=== PATIENT | female | born 1940 | race Caucasian/White ===

== ENCOUNTER 2021-01-29 18:21 | Emergency (ER) | payer MEDICARE, BC ==
[~2021-01-29] VITALS: Ht 162.6 cm; Wt 120.0 kg
[2021-01-29 19:57] LABS: BASOPHILS % 0.8 % (0.0-2.0); EOSINOPHILS % 1.1 % (0.0-5.0); HEMOGLOBIN. 11.2 g/dL (12.0-16.0); LYMPHOCYTES % 17.9 % (20.0-50.0); MEAN CORPUSCULAR HEMOGLOBIN 30.2 pg (28.0-32.0); MEAN CORPUSCULAR VOLUME 91.5 fL (81.0-99.0); MEAN PLATELET VOLUME 7.2 fl (7.4-10.4); MONOCYTES % 9.8 % (2.0-8.0); NEUTROPHILS % 70.4 % (40.0-76.0); PLATELET 287 x1000/uL (130-400); RED BLOOD CELL COUNT 3.72 mill/uL (4.2-5.4); RED CELL DISTRIBUTION WIDTH 15.4 % (11.6-14.6)
[2021-01-29 19:59] LABS: CHLORIDE 92 mEq/L (98-107)
[2021-01-29 23:50] VITALS: BP 155/67
== END 2021-01-30 00:19 | disposition home or self-care (01) ==
LOC: ER 18:21
DX: S09.8XXA Other specified injuries of head, initial encounter (principal); W01.0XXA Fall on same level from slipping, tripping and stumbling without subsequent striking against object, initial encounter; Y93.89 Activity, other specified; Y92.89 Other specified places as the place of occurrence of the external cause; Y99.8 Other external cause status; E11.9 Type 2 diabetes mellitus without complications; I10 Essential (primary) hypertension
CPT/HCPCS: 36415; 80053; 85025; 93005; 99285

== ENCOUNTER 2022-05-22 01:17 | Inpatient (IN) | payer MEDICARE, BC ==
[~2022-05-22] VITALS: Ht 165.1 cm; Wt 117.5 kg
[2022-05-22 04:12] LABS: CHLORIDE 78 mEq/L (98-107)
[2022-05-22 04:48] LABS: HEMOGLOBIN. 11.8 g/dL (12.0-16.0); MEAN CORPUSCULAR HEMOGLOBIN 29.9 pg (28.0-32.0); MEAN CORPUSCULAR VOLUME 91.2 fL (81.0-99.0); MEAN PLATELET VOLUME 7.7 fl (7.4-10.4); PLATELET 259 x1000/uL (130-400); RED BLOOD CELL COUNT 3.95 mill/uL (4.2-5.4); RED CELL DISTRIBUTION WIDTH 14.7 % (11.6-14.6)
[2022-05-22] MEDS ORDERED: CLONIDINE 0.1MG TABLET PO PRN (05:00)
[2022-05-22] MEDS ORDERED: MAGNESIUM/ALUMINUM HYDROXIDE/SIMETHICONE 30ML UDC PO PRN (05:00)
[2022-05-22] MEDS ORDERED: HYDROCODONE/ACETAMINOPHEN 5/325MG TABLET PO PRN (05:00)
[2022-05-22] MEDS ORDERED: DEXTROSE 50% WATER 50ML SYRINGE IV PRN (05:00)
[2022-05-22] MEDS ORDERED: ONDANSETRON HCL 4MG/2ML INJ IV PRN (05:00)
[2022-05-22] MEDS ORDERED: ACETAMINOPHEN 325MG TABLET PO PRN ×2 (05:00)
[2022-05-22] MEDS ORDERED: GUAIFENESIN 200MG/10ML SUGAR FREE UDC PO PRN (05:00)
[2022-05-22] MEDS ORDERED: DOCUSATE SODIUM 100MG CAPSULE PO PRN (05:00)
[2022-05-22] MEDS ORDERED: HYDR25TA PO (05:09)
[2022-05-22] MEDS ORDERED: GABA-532 PO (05:09)
[2022-05-22] MEDS ORDERED: ATROV3 (05:09)
[2022-05-22] MEDS ORDERED: DICL100G31 TP (05:09)
[2022-05-22] MEDS ORDERED: PRAV80TA19 PO (05:09)
[2022-05-22] MEDS ORDERED: METF-416 PO (05:09)
[2022-05-22] MEDS ORDERED: LATA2.5D14 EACHEYE (05:09)
[2022-05-22] MEDS ORDERED: FURO20TA4 PO (05:09)
[2022-05-22] MEDS ORDERED: TIMO15DR12 EACHEYE (05:09)
[2022-05-22] MEDS ORDERED: FLUT16SP15 (05:09)
[2022-05-22] MEDS ORDERED: LOSA50TA41 PO (05:09)
[2022-05-22] MEDS ORDERED: VANCOMYCIN 1G PREMIX 200 ML IV NR ×2 (05:30→07:00)
[2022-05-22] MEDS ORDERED: NALOXONE HCL 0.4MG/ML VIAL IV PRN (05:30)
[2022-05-22 05:36] LABS: PLATELET ESTIMATE NORMAL
[2022-05-22] MEDS: SODIUM CHLORIDE 0.9% 1,000 ML IV SCH ×2 (05:39→15:26)
[2022-05-22] MEDS ORDERED: PIPERACILLIN/TAZOBACTAM 3.375 G in DEXTROSE 5% WATER 50 ML IV SCH (06:00)
[2022-05-22 06:23] LABS: CLARITY URINE CLOUDY (CLEAR); COLOR URINE YELLOW (YELLOW); KETONES URINE NEGATIVE (NEGATIVE); LEUKOCYTE ESTERASE URINE 3+ (NEGATIVE); NITRITE URINE NEGATIVE (NEGATIVE); OCCULT BLOOD URINE TRACE (NEGATIVE); PROTEIN URINE NEGATIVE (NEGATIVE); UROBILINOGEN URINE 0.2 E.U./dL (0.2-1.0)
[2022-05-22 06:28] LABS: TOTAL IRON BINDING CAPACITY 359 ug/dL (250-450)
[2022-05-22 06:36] LABS: T4 FREE 1.58 ng/dL (0.76-1.46)
[2022-05-22 06:40] LABS: CREATINE KINASE 74 IU/L (26-192)
[2022-05-22 06:43] LABS: *AMPHETAMINES SCREEN URINE NEGATIVE (NEGATIVE); *BARBITURATES SCREEN URINE NEGATIVE (NEGATIVE); *BENZODIAZEPINES SCREEN URINE NEGATIVE (NEGATIVE); *COCAINE SCREEN URINE NEGATIVE (NEGATIVE); CANNABINOID URINE SCREEN NEGATIVE (NEGATIVE); METHADONE URINE SCREEN NEGATIVE (NEGATIVE); OPIATES URINE SCREEN NEGATIVE (NEGATIVE); PHENCYCLIDINE URINE SCREEN NEGATIVE (NEGATIVE)
[2022-05-22] MEDS ORDERED: PIPERACILLIN/TAZ 3.375G PREMIX 50 ML IV SCH (08:00)
[2022-05-22 08:06] LABS: SODIUM URINE RANDOM 36 mEq/L
[2022-05-22 08:53] LABS: BG BASE EXCESS 7.5 mmol/L (-2.0-2.0); BG CARBOXYHEMOGLOBIN 0.6 % (0.5-1.5); BG DEOXYHEMOGLOBIN 1.3 % (0.0-5.0); BG HCO3 ACT 34.9 mmol/L (22.0-26.0); BG METHEMOGLOBIN 0.2 % (0.0-1.5); BG OXYGEN SATURATION 98.7 % (92.0-98.5); BG OXYHEMOGLOBIN 97.9 % (94.0-97.0); BG PCO2 63.7 mmHg (35.0-45.0); BG PH 7.356 (7.350-7.450); BG PO2 146.5 mmHg (75.0-100.0); BG SAMPLE SITE RIGHT RADIAL; BG TOTAL HEMOGLOBIN 11.7 g/dL (12.0-18.0); BG VENT MODE NASAL CANNULA
[2022-05-22] MEDS: BLOOD SUGAR DIAGNOSTIC STRIP TEST SCH ×4 (09:27→23:00)
[2022-05-22] MEDS: INSULIN LISPRO 100 UNITS/ML SUBCUT SCH ×4 (10:35→23:00)
[2022-05-22] MEDS: LOSARTAN POTASSIUM 25 MG TABLET PO SCH (10:36)
[2022-05-22] MEDS: FUROSEMIDE 40MG/4ML VIAL IV SCH (10:36)
[2022-05-22] MEDS: GABAPENTIN 300MG CAPSULE PO SCH (10:37)
[2022-05-22] MEDS: HYDROCHLOROTHIAZIDE 25MG TABLET PO SCH (11:20)
[2022-05-22] MEDS: TIMOLOL MALEATE 0.5% OPHTH DROPS 5ML EACHEYE SCH ×2 (11:20→18:22)
[2022-05-22] MEDS: DICLOFENAC SODIUM 1% GEL 50GM TOP SCH ×4 (11:20→21:00)
[2022-05-22] MEDS: PIPERACILLIN/TAZOBACTAM 3.375 G in DEXTROSE 5% WATER 50 ML IV SCH (15:26)
[2022-05-22 15:42] LABS: CREATINE KINASE 141 IU/L (26-192)
[2022-05-22 16:52] LABS: BG BASE EXCESS 7.5 mmol/L (-2.0-2.0); BG CARBOXYHEMOGLOBIN 0.1 % (0.5-1.5); BG DEOXYHEMOGLOBIN 0.4 % (0.0-5.0); BG FRACTION INSPIRED OXYGEN 100; BG HCO3 ACT 35.3 mmol/L (22.0-26.0); BG METHEMOGLOBIN 0.6 % (0.0-1.5); BG OXYGEN SATURATION 99.6 % (92.0-98.5); BG OXYHEMOGLOBIN 98.9 % (94.0-97.0); BG PCO2 67.3 mmHg (35.0-45.0); BG PH 7.338 (7.350-7.450); BG PO2 455.2 mmHg (75.0-100.0); BG SAMPLE SITE LEFT RADIAL; BG TOTAL HEMOGLOBIN 12.1 g/dL (12.0-18.0); BG VENT MODE MASK - BIPAP
[2022-05-22] MEDS: LATANOPROST 0.005% OPHTH DROPS 2.5ML EACHEYE SCH (17:00)
[2022-05-22 17:56] LABS: CHLORIDE 79 mEq/L (98-107)
[2022-05-22 20:08] LABS: BG BASE EXCESS 5.6 mmol/L (-2.0-2.0); BG CARBOXYHEMOGLOBIN 0.6 % (0.5-1.5); BG FRACTION INSPIRED OXYGEN 40; BG HCO3 ACT 32.7 mmol/L (22.0-26.0); BG METHEMOGLOBIN 0.1 % (0.0-1.5); BG OXYHEMOGLOBIN 95.3 % (94.0-97.0); BG PCO2 60.9 mmHg (35.0-45.0); BG PH 7.348 (7.350-7.450); BG PO2 82.6 mmHg (75.0-100.0); BG TOTAL HEMOGLOBIN 11.7 g/dL (12.0-18.0); BG VENT MODE HIGH FLOW
[2022-05-22] MEDS ORDERED: SODIUM CHLORIDE 0.9% 500ML IV ONE (21:00)
[2022-05-22] MEDS: ATORVASTATIN CALCIUM 20MG TABLET PO SCH (21:00)
[2022-05-22] MEDS: FAMOTIDINE 20MG TABLET PO SCH (21:00)
[2022-05-22] MEDS: PHENYLEPHRINE 50 MG in DEXTROSE 5% WATER 250 ML IV PRN (21:35)
[2022-05-22] MEDS: MIDODRINE HCL 5MG TABLET PO SCH (22:00)
[2022-05-23] MEDS: PIPERACILLIN/TAZOBACTAM 3.375 G in DEXTROSE 5% WATER 50 ML IV SCH ×2 (00:08→07:26)
[2022-05-23] MEDS: SODIUM CHLORIDE 0.9% 1,000 ML IV SCH ×3 (03:54→23:00)
[2022-05-23] MEDS: PHENYLEPHRINE 50 MG in DEXTROSE 5% WATER 250 ML IV PRN ×2 (04:32→17:08)
[2022-05-23 05:45] LABS: HEMATOCRIT. 33.4 % (36.0-48.0); HEMOGLOBIN. 10.9 g/dL (12.0-16.0); MEAN CORPUSCULAR HEMOGLOBIN 30.1 pg (28.0-32.0); MEAN CORPUSCULAR VOLUME 91.9 fL (81.0-99.0); MEAN PLATELET VOLUME 7.1 fl (7.4-10.4); PLATELET 251 x1000/uL (130-400); RED BLOOD CELL COUNT 3.64 mill/uL (4.2-5.4); RED CELL DISTRIBUTION WIDTH 14.9 % (11.6-14.6)
[2022-05-23 05:52] LABS: CHLORIDE 84 mEq/L (98-107)
[2022-05-23 06:01] LABS: HDL CHOLESTEROL 100 mg/dL (40-59); LDL CHOLESTEROL 20 mg/dL (5-100)
[2022-05-23] MEDS: BLOOD SUGAR DIAGNOSTIC STRIP TEST SCH ×4 (06:30→21:53)
[2022-05-23] MEDS: INSULIN LISPRO 100 UNITS/ML SUBCUT SCH ×3 (07:00→22:00)
[2022-05-23 07:18] LABS: PLATELET ESTIMATE NORMAL
[2022-05-23] MEDS: MIDODRINE HCL 5MG TABLET PO SCH (07:26)
[2022-05-23] MEDS ORDERED: POTASSIUM CHLORIDE 20MEQ TABLET SR PO NR (08:30)
[2022-05-23] MEDS ORDERED: PIPERACILLIN/TAZ 3.375G PREMIX 50 ML IV SCH (08:45)
[2022-05-23] MEDS ORDERED: AZITHROMYCIN 500MG/250ML 250 ML IV NR (08:45)
[2022-05-23 09:50] LABS: BG CARBOXYHEMOGLOBIN 0.7 % (0.5-1.5); BG DEOXYHEMOGLOBIN 4.3 % (0.0-5.0); BG FRACTION INSPIRED OXYGEN 40; BG HCO3 ACT 34.2 mmol/L (22.0-26.0); BG METHEMOGLOBIN 0.1 % (0.0-1.5); BG OXYGEN SATURATION 95.7 % (92.0-98.5); BG OXYHEMOGLOBIN 94.9 % (94.0-97.0); BG PCO2 78.2 mmHg (35.0-45.0); BG PH 7.259 (7.350-7.450); BG PO2 81.9 mmHg (75.0-100.0); BG SAMPLE SITE LEFT RADIAL; BG TOTAL HEMOGLOBIN 11.7 g/dL (12.0-18.0); BG VENT MODE HIGH FLOW
[2022-05-23] MEDS: FUROSEMIDE 40MG/4ML VIAL IV SCH (09:55)
[2022-05-23] MEDS: HYDROCHLOROTHIAZIDE 25MG TABLET PO SCH (09:55)
[2022-05-23] MEDS: GABAPENTIN 300MG CAPSULE PO SCH (09:55)
[2022-05-23] MEDS: TIMOLOL MALEATE 0.5% OPHTH DROPS 5ML EACHEYE SCH ×2 (09:55→17:35)
[2022-05-23] MEDS: DICLOFENAC SODIUM 1% GEL 50GM TOP SCH ×4 (09:55→21:30)
[2022-05-23] MEDS: LOSARTAN POTASSIUM 25 MG TABLET PO SCH (09:55)
[2022-05-23] MEDS ORDERED: VANCOMYCIN 1G PREMIX 200 ML IV SCH (12:00)
[2022-05-23] MEDS ORDERED: PREDNISONE 20MG TABLET PO SCH (12:45)
[2022-05-23] MEDS ORDERED: VECURONIUM BROMIDE 10 MG/VIAL IV ONE (12:58)
[2022-05-23] MEDS ORDERED: ETOMIDATE 2MG/ML 10ML VIAL IV ONE (12:58)
[2022-05-23] MEDS ORDERED: SODIUM CHLORIDE 0.9% 10ML VIAL ONE (12:58)
[2022-05-23] MEDS: PIPERACILLIN/TAZ 3.375G PREMIX 50 ML IV SCH ×2 (14:00→23:00)
[2022-05-23] MEDS ORDERED: MIDODRINE HCL 5MG TABLET PO SCH ×2 (14:30→22:00)
[2022-05-23] MEDS: IPRATROPIUM/ALBUTEROL 0.5-3(2.5)MG/3ML NEB NEB PRN (14:40)
[2022-05-23 15:49] LABS: BG BASE EXCESS 4.2 mmol/L (-2.0-2.0); BG CARBOXYHEMOGLOBIN 0.7 % (0.5-1.5); BG DEOXYHEMOGLOBIN 1.7 % (0.0-5.0); BG FRACTION INSPIRED OXYGEN 35; BG HCO3 ACT 32.5 mmol/L (22.0-26.0); BG METHEMOGLOBIN 0.4 % (0.0-1.5); BG OXYGEN SATURATION 98.3 % (92.0-98.5); BG OXYHEMOGLOBIN 97.2 % (94.0-97.0); BG PCO2 70.2 mmHg (35.0-45.0); BG PH 7.284 (7.350-7.450); BG PO2 111.5 mmHg (75.0-100.0); BG SAMPLE SITE LEFT RADIAL; BG TOTAL HEMOGLOBIN 11.4 g/dL (12.0-18.0); BG VENT MODE MASK - BIPAP
[2022-05-23] MEDS ORDERED: FENTANYL 2500MCG/250ML PMX 250 ML IV PRN (16:30)
[2022-05-23] MEDS: LATANOPROST 0.005% OPHTH DROPS 2.5ML EACHEYE SCH (17:35)
[2022-05-23] MEDS: MIDAZOLAM HCL 100 MG in SODIUM CHLORIDE 0.9% 80 ML IV PRN (18:24)
[2022-05-23 18:45] LABS: BG BASE EXCESS 8.2 mmol/L (-2.0-2.0); BG CARBOXYHEMOGLOBIN 0.9 % (0.5-1.5); BG DEOXYHEMOGLOBIN 1.2 % (0.0-5.0); BG FRACTION INSPIRED OXYGEN 40; BG HCO3 ACT 33.9 mmol/L (22.0-26.0); BG METHEMOGLOBIN 0.2 % (0.0-1.5); BG OXYGEN SATURATION 98.8 % (92.0-98.5); BG OXYHEMOGLOBIN 97.7 % (94.0-97.0); BG PCO2 51.6 mmHg (35.0-45.0); BG PH 7.435 (7.350-7.450); BG PO2 130.2 mmHg (75.0-100.0); BG SAMPLE SITE LEFT RADIAL; BG TOTAL HEMOGLOBIN 12.2 g/dL (12.0-18.0); BG VENT MODE VENT - AC
[2022-05-23] MEDS: FAMOTIDINE 20MG TABLET PO SCH (21:30)
[2022-05-23] MEDS: ATORVASTATIN CALCIUM 20MG TABLET PO SCH (21:30)
[2022-05-23] MEDS ORDERED: LABETALOL 5MG/ML SYR 20 MG/4 ML SYRINGE IV NR (22:45)
[2022-05-23] MEDS: METHYLPREDNISOLONE SOD SUCC 125 MG/2 ML VIAL IV SCH (23:06)
[2022-05-24] VITALS (47 sets, daily range): BP systolic 121–169; BP diastolic 50–78
[2022-05-24] MEDS ORDERED: PIPERACILLIN/TAZOBACTAM 3.375 G in DEXTROSE 5% WATER 50 ML IV SCH (06:00)
[2022-05-24] MEDS: METHYLPREDNISOLONE SOD SUCC 125 MG/2 ML VIAL IV SCH ×3 (06:00→22:11)
[2022-05-24] MEDS: SODIUM CHLORIDE 0.9% 1,000 ML IV SCH (07:00)
[2022-05-24] MEDS ORDERED: AZITHROMYCIN 500 MG in DEXT 5% WATER 250 ML IV SCH (08:00)
[2022-05-24] MEDS: GABAPENTIN 300MG CAPSULE PO SCH (09:00)
[2022-05-24] MEDS: TIMOLOL MALEATE 0.5% OPHTH DROPS 5ML EACHEYE SCH ×2 (09:00→22:20)
[2022-05-24] MEDS: DICLOFENAC SODIUM 1% GEL 50GM TOP SCH ×4 (09:00→21:18)
[2022-05-24 10:17] LABS: BG BASE EXCESS 8.5 mmol/L (-2.0-2.0); BG CARBOXYHEMOGLOBIN 0.3 % (0.5-1.5); BG DEOXYHEMOGLOBIN 1.4 % (0.0-5.0); BG FRACTION INSPIRED OXYGEN 35; BG HCO3 ACT 30.6 mmol/L (22.0-26.0); BG METHEMOGLOBIN 0.3 % (0.0-1.5); BG PCO2 34.2 mmHg (35.0-45.0); BG PO2 121.5 mmHg (75.0-100.0); BG SAMPLE SITE LEFT RADIAL; BG TOTAL HEMOGLOBIN 11.5 g/dL (12.0-18.0); BG VENT MODE VENT - AC
[2022-05-24] MEDS: BLOOD SUGAR DIAGNOSTIC STRIP TEST SCH ×4 (11:00→21:17)
[2022-05-24] MEDS: INSULIN LISPRO 100 UNITS/ML SUBCUT SCH ×4 (11:01→21:22)
[2022-05-24] MEDS ORDERED: VANCOMYCIN 1G PREMIX 200 ML IV SCH (13:00)
[2022-05-24] MEDS: AZITHROMYCIN 500 MG in DEXT 5% WATER 250 ML IV SCH (13:37)
[2022-05-24] MEDS: MIDAZOLAM HCL 100 MG in SODIUM CHLORIDE 0.9% 80 ML IV PRN (13:40)
[2022-05-24] MEDS: PIPERACILLIN/TAZOBACTAM 3.375 G in DEXTROSE 5% WATER 50 ML IV SCH ×2 (14:00→22:11)
[2022-05-24 15:53] LABS: HEMATOCRIT. 31.5 % (36.0-48.0); HEMOGLOBIN. 10.4 g/dL (12.0-16.0); MEAN CORPUSCULAR HEMOGLOBIN 29.8 pg (28.0-32.0); MEAN CORPUSCULAR VOLUME 90.6 fL (81.0-99.0); MEAN PLATELET VOLUME 7.6 fl (7.4-10.4); PLATELET 242 x1000/uL (130-400); RED BLOOD CELL COUNT 3.48 mill/uL (4.2-5.4); RED CELL DISTRIBUTION WIDTH 14.7 % (11.6-14.6)
[2022-05-24 16:08] LABS: CHLORIDE 87 mEq/L (98-107)
[2022-05-24 16:25] LABS: T4 FREE 1.68 ng/dL (0.76-1.46)
[2022-05-24 16:28] LABS: CREATINE KINASE 1001 IU/L (26-192); CREATINE KINASE MB FRACTION 4.6 ng/mL (0.5-3.6); PHOSPHORUS 1.3 mg/dL (2.5-4.9)
[2022-05-24] MEDS ORDERED: MAGNESIUM 2 G PREMIX 50 ML IV NR (17:30)
[2022-05-24] MEDS ORDERED: KCL 20MEQ/100ML PREMIX 100 ML IV NR (17:30)
[2022-05-24] MEDS: PANTOPRAZOLE SODIUM 40 MG/VIAL IV SCH (18:41)
[2022-05-24] MEDS: KCL 20MEQ/100ML PREMIX 100 ML IV SCH ×2 (18:41→21:13)
[2022-05-24] MEDS ORDERED: POTASSIUM PHOS,M-BASIC-D-BASIC 30 MMOL in DEXT 5% WATER 500 ML IV ONE (19:00)
[2022-05-24 19:14] LABS: PLATELET ESTIMATE NORMAL
[2022-05-24] MEDS: ATORVASTATIN CALCIUM 20MG TABLET PO SCH (21:00)
[2022-05-24] MEDS: ENOXAPARIN 30MG/0.3ML SYR SUBCUT SCH (22:06)
[2022-05-24] MEDS: LATANOPROST 0.005% OPHTH DROPS 2.5ML EACHEYE SCH (22:20)
[2022-05-25] VITALS (94 sets, daily range): BP systolic 113–179; BP diastolic 48–169
[2022-05-25 00:22] LABS: CREATINE KINASE MB FRACTION 3.7 ng/mL (0.5-3.6)
[2022-05-25] MEDS: PIPERACILLIN/TAZOBACTAM 3.375 G in DEXTROSE 5% WATER 50 ML IV SCH ×3 (05:51→22:15)
[2022-05-25] MEDS: METHYLPREDNISOLONE SOD SUCC 125 MG/2 ML VIAL IV SCH ×3 (05:51→22:14)
[2022-05-25] MEDS: MIDAZOLAM HCL 100 MG in SODIUM CHLORIDE 0.9% 80 ML IV PRN (05:57)
[2022-05-25 06:39] LABS: HEMATOCRIT. 34.9 % (36.0-48.0); HEMOGLOBIN. 11.7 g/dL (12.0-16.0); MEAN CORPUSCULAR HEMOGLOBIN 30.3 pg (28.0-32.0); MEAN CORPUSCULAR VOLUME 89.9 fL (81.0-99.0); MEAN PLATELET VOLUME 7.6 fl (7.4-10.4); PLATELET 246 x1000/uL (130-400); RED BLOOD CELL COUNT 3.87 mill/uL (4.2-5.4); RED CELL DISTRIBUTION WIDTH 14.8 % (11.6-14.6)
[2022-05-25 06:44] LABS: CHLORIDE 91 mEq/L (98-107)
[2022-05-25 06:50] LABS: PHOSPHORUS 2.3 mg/dL (2.5-4.9)
[2022-05-25 06:53] LABS: CREATINE KINASE MB FRACTION 2.6 ng/mL (0.5-3.6)
[2022-05-25] MEDS: BLOOD SUGAR DIAGNOSTIC STRIP TEST SCH ×4 (08:29→21:00)
[2022-05-25] MEDS: ENOXAPARIN 30MG/0.3ML SYR SUBCUT SCH ×2 (08:45→22:18)
[2022-05-25] MEDS: PANTOPRAZOLE SODIUM 40 MG/VIAL IV SCH (08:45)
[2022-05-25] MEDS: POTASSIUM-SODIUM PHOSPHATE POWDER PACKET PO SCH ×2 (08:46→18:03)
[2022-05-25] MEDS: KCL 20MEQ/100ML PREMIX 100 ML IV SCH ×2 (08:46→11:33)
[2022-05-25] MEDS: DICLOFENAC SODIUM 1% GEL 50GM TOP SCH ×4 (08:46→22:13)
[2022-05-25] MEDS: AZITHROMYCIN 500 MG in DEXT 5% WATER 250 ML IV SCH (08:46)
[2022-05-25] MEDS: GABAPENTIN 300MG CAPSULE PO SCH (08:46)
[2022-05-25 08:47] LABS: PLATELET ESTIMATE NORMAL
[2022-05-25] MEDS: TIMOLOL MALEATE 0.5% OPHTH DROPS 5ML EACHEYE SCH ×2 (08:49→18:06)
[2022-05-25] MEDS: INSULIN LISPRO 100 UNITS/ML SUBCUT SCH ×4 (08:49→21:00)
[2022-05-25 09:03] LABS: BG BASE EXCESS 8.7 mmol/L (-2.0-2.0); BG CARBOXYHEMOGLOBIN 0.4 % (0.5-1.5); BG DEOXYHEMOGLOBIN 0.7 % (0.0-5.0); BG FRACTION INSPIRED OXYGEN 40; BG HCO3 ACT 32.2 mmol/L (22.0-26.0); BG METHEMOGLOBIN 0.4 % (0.0-1.5); BG OXYGEN SATURATION 99.3 % (92.0-98.5); BG OXYHEMOGLOBIN 98.5 % (94.0-97.0); BG PH 7.523 (7.350-7.450); BG PO2 178.7 mmHg (75.0-100.0); BG SAMPLE SITE LEFT RADIAL; BG TOTAL HEMOGLOBIN 11.7 g/dL (12.0-18.0); BG TOTAL RESPIRATORY RATE 16 b/min; BG VENT MODE VENT - AC
[2022-05-25] MEDS ORDERED: ACETAZOLAMIDE SODIUM 500MG/VIAL IV SCH (11:00)
[2022-05-25] MEDS: VANCOMYCIN 1G PREMIX 200 ML IV SCH (11:32)
[2022-05-25] MEDS: SODIUM CHLORIDE 0.9% 1,000 ML IV SCH (13:26)
[2022-05-25] MEDS ORDERED: LORAZEPAM 2MG/ML CPJ IV PRN (13:45)
[2022-05-25] MEDS: LATANOPROST 0.005% OPHTH DROPS 2.5ML EACHEYE SCH (18:06)
[2022-05-25] MEDS: ATORVASTATIN CALCIUM 20MG TABLET PO SCH (22:12)
[2022-05-26] VITALS (82 sets, daily range): BP systolic 112–176; BP diastolic 55–98
[2022-05-26] MEDS: VANCOMYCIN 1G PREMIX 200 ML IV SCH (05:34)
[2022-05-26] MEDS: SODIUM CHLORIDE 0.9% 1,000 ML IV SCH ×2 (05:34→16:27)
[2022-05-26] MEDS: METHYLPREDNISOLONE SOD SUCC 125 MG/2 ML VIAL IV SCH ×3 (05:46→21:27)
[2022-05-26] MEDS: PIPERACILLIN/TAZOBACTAM 3.375 G in DEXTROSE 5% WATER 50 ML IV SCH ×3 (05:46→21:32)
[2022-05-26 06:55] LABS: HEMATOCRIT. 35.2 % (36.0-48.0); HEMOGLOBIN. 11.8 g/dL (12.0-16.0); MEAN CORPUSCULAR HEMOGLOBIN 30.4 pg (28.0-32.0); MEAN CORPUSCULAR VOLUME 90.3 fL (81.0-99.0); MEAN PLATELET VOLUME 7.5 fl (7.4-10.4); PLATELET 256 x1000/uL (130-400)
[2022-05-26 07:02] LABS: CHLORIDE 99 mEq/L (98-107)
[2022-05-26 07:06] LABS: PHOSPHORUS 2.1 mg/dL (2.5-4.9)
[2022-05-26] MEDS: BLOOD SUGAR DIAGNOSTIC STRIP TEST SCH ×4 (07:52→21:00)
[2022-05-26] MEDS: TIMOLOL MALEATE 0.5% OPHTH DROPS 5ML EACHEYE SCH ×2 (08:24→18:26)
[2022-05-26] MEDS: GABAPENTIN 300MG CAPSULE PO SCH (08:24)
[2022-05-26] MEDS: DICLOFENAC SODIUM 1% GEL 50GM TOP SCH ×4 (08:24→21:31)
[2022-05-26] MEDS: PANTOPRAZOLE SODIUM 40 MG/VIAL IV SCH (08:24)
[2022-05-26] MEDS: KCL 20MEQ/100ML PREMIX 100 ML IV SCH ×2 (08:24→12:21)
[2022-05-26] MEDS: ASPIRIN 81MG TABLET PO SCH (08:24)
[2022-05-26] MEDS: AZITHROMYCIN 500 MG in DEXT 5% WATER 250 ML IV SCH (08:25)
[2022-05-26] MEDS: ENOXAPARIN 30MG/0.3ML SYR SUBCUT SCH ×2 (08:25→21:30)
[2022-05-26] MEDS: INSULIN LISPRO 100 UNITS/ML SUBCUT SCH ×4 (08:29→22:23)
[2022-05-26] MEDS: IPRATROPIUM/ALBUTEROL 0.5-3(2.5)MG/3ML NEB NEB PRN ×2 (08:41→14:17)
[2022-05-26 09:03] LABS: BG BASE EXCESS 2.4 mmol/L (-2.0-2.0); BG CARBOXYHEMOGLOBIN 0.2 % (0.5-1.5); BG DEOXYHEMOGLOBIN 1.1 % (0.0-5.0); BG FRACTION INSPIRED OXYGEN 30; BG HCO3 ACT 26.9 mmol/L (22.0-26.0); BG METHEMOGLOBIN 0.3 % (0.0-1.5); BG OXYGEN SATURATION 98.9 % (92.0-98.5); BG OXYHEMOGLOBIN 98.4 % (94.0-97.0); BG PCO2 41.3 mmHg (35.0-45.0); BG PH 7.432 (7.350-7.450); BG SAMPLE SITE LEFT RADIAL; BG VENT MODE VENT - AC
[2022-05-26 10:45] LABS: PLATELET ESTIMATE NORMAL
[2022-05-26 12:47] LABS: BG BASE EXCESS -1.4 mmol/L (-2.0-2.0); BG CARBOXYHEMOGLOBIN 0.5 % (0.5-1.5); BG DEOXYHEMOGLOBIN 1.2 % (0.0-5.0); BG FRACTION INSPIRED OXYGEN 40; BG HCO3 ACT 24.8 mmol/L (22.0-26.0); BG METHEMOGLOBIN 0.1 % (0.0-1.5); BG OXYGEN SATURATION 98.8 % (92.0-98.5); BG OXYHEMOGLOBIN 98.2 % (94.0-97.0); BG PCO2 47.8 mmHg (35.0-45.0); BG PH 7.333 (7.350-7.450); BG SAMPLE SITE RIGHT RADIAL; BG TOTAL HEMOGLOBIN 11.9 g/dL (12.0-18.0); BG VENT MODE VENT - CPAP
[2022-05-26] MEDS ORDERED: DOCUSATE SODIUM SUGAR FREE 100MG/10ML UDC PO PRN (13:06)
[2022-05-26] MEDS ORDERED: MAGNESIUM 1 G PREMIX 100 ML IV NR (16:30)
[2022-05-26] MEDS: LATANOPROST 0.005% OPHTH DROPS 2.5ML EACHEYE SCH (18:26)
[2022-05-26] MEDS: ATORVASTATIN CALCIUM 20MG TABLET PO SCH (21:27)
[2022-05-27] VITALS (55 sets, daily range): BP systolic 130–190; BP diastolic 28–99
[2022-05-27] MEDS: SODIUM CHLORIDE 0.9% 1,000 ML IV SCH ×3 (00:50→23:43)
[2022-05-27 05:38] LABS: BASOPHILS % 0.2 % (0.0-2.0); EOSINOPHILS % 0.2 % (0.0-5.0); HEMATOCRIT. 33.9 % (36.0-48.0); HEMOGLOBIN. 11.3 g/dL (12.0-16.0); LYMPHOCYTES % 7.1 % (20.0-50.0); MEAN CORPUSCULAR HEMOGLOBIN 30.3 pg (28.0-32.0); MEAN CORPUSCULAR VOLUME 90.5 fL (81.0-99.0); MEAN PLATELET VOLUME 7.4 fl (7.4-10.4); MONOCYTES % 7.3 % (2.0-8.0); NEUTROPHILS % 85.2 % (40.0-76.0); PLATELET 273 x1000/uL (130-400); RED BLOOD CELL COUNT 3.74 mill/uL (4.2-5.4); RED CELL DISTRIBUTION WIDTH 15.3 % (11.6-14.6)
[2022-05-27] MEDS: PIPERACILLIN/TAZOBACTAM 3.375 G in DEXTROSE 5% WATER 50 ML IV SCH ×3 (05:54→21:07)
[2022-05-27 06:55] LABS: CHLORIDE 99 mEq/L (98-107)
[2022-05-27 07:02] LABS: PHOSPHORUS 1.8 mg/dL (2.5-4.9)
[2022-05-27] MEDS: BLOOD SUGAR DIAGNOSTIC STRIP TEST SCH ×4 (08:20→23:35)
[2022-05-27] MEDS: GABAPENTIN 300MG CAPSULE PO SCH (08:39)
[2022-05-27] MEDS: PANTOPRAZOLE SODIUM 40 MG/VIAL IV SCH (08:39)
[2022-05-27] MEDS: ASPIRIN 81MG TABLET PO SCH (08:39)
[2022-05-27] MEDS: METHYLPREDNISOLONE SOD SUCC 125 MG/2 ML VIAL IV SCH ×2 (08:40→21:05)
[2022-05-27] MEDS: ENOXAPARIN 30MG/0.3ML SYR SUBCUT SCH ×2 (08:40→21:06)
[2022-05-27] MEDS: AZITHROMYCIN 500 MG in DEXT 5% WATER 250 ML IV SCH (08:40)
[2022-05-27] MEDS: DICLOFENAC SODIUM 1% GEL 50GM TOP SCH ×4 (08:42→21:07)
[2022-05-27] MEDS: TIMOLOL MALEATE 0.5% OPHTH DROPS 5ML EACHEYE SCH ×2 (08:42→17:44)
[2022-05-27] MEDS: INSULIN LISPRO 100 UNITS/ML SUBCUT SCH ×4 (08:42→23:44)
[2022-05-27 09:17] LABS: BG BASE EXCESS 1.6 mmol/L (-2.0-2.0); BG CARBOXYHEMOGLOBIN 0.6 % (0.5-1.5); BG DEOXYHEMOGLOBIN 1.5 % (0.0-5.0); BG FRACTION INSPIRED OXYGEN 30; BG HCO3 ACT 26.6 mmol/L (22.0-26.0); BG METHEMOGLOBIN 0.3 % (0.0-1.5); BG OXYGEN SATURATION 98.5 % (92.0-98.5); BG OXYHEMOGLOBIN 97.6 % (94.0-97.0); BG PCO2 43.1 mmHg (35.0-45.0); BG PH 7.408 (7.350-7.450); BG PO2 126.5 mmHg (75.0-100.0); BG SAMPLE SITE RIGHT RADIAL; BG VENT MODE VENT - AC
[2022-05-27] MEDS: KCL 20MEQ/100ML PREMIX 100 ML IV SCH ×2 (10:41→12:45)
[2022-05-27] MEDS ORDERED: POTASSIUM PHOS,M-BASIC-D-BASIC 30 MMOL in SODIUM CHLORIDE 0.9% 500 ML IV NR (12:45)
[2022-05-27 15:55] LABS: BG BASE EXCESS 5.2 mmol/L (-2.0-2.0); BG CARBOXYHEMOGLOBIN 0.2 % (0.5-1.5); BG DEOXYHEMOGLOBIN 1.1 % (0.0-5.0); BG FRACTION INSPIRED OXYGEN 40; BG HCO3 ACT 30.9 mmol/L (22.0-26.0); BG METHEMOGLOBIN 0.2 % (0.0-1.5); BG OXYGEN SATURATION 98.9 % (92.0-98.5); BG OXYHEMOGLOBIN 98.5 % (94.0-97.0); BG PCO2 50.7 mmHg (35.0-45.0); BG PH 7.403 (7.350-7.450); BG PO2 167.5 mmHg (75.0-100.0); BG SAMPLE SITE RIGHT RADIAL; BG TOTAL HEMOGLOBIN 11.7 g/dL (12.0-18.0); BG VENT MODE VENT - CPAP
[2022-05-27] MEDS: LATANOPROST 0.005% OPHTH DROPS 2.5ML EACHEYE SCH (17:44)
[2022-05-27] MEDS ORDERED: LACTULOSE 20G/30ML UDC PO PRN (19:15)
[2022-05-27] MEDS: CEFEPIME 1,000 MG in DEXTROSE 5% WATER 50 ML IV SCH (23:43)
[2022-05-28] VITALS (38 sets, daily range): BP systolic 121–162; BP diastolic 46–118
[2022-05-28 06:02] LABS: BASOPHILS % 0.1 % (0.0-2.0); HEMATOCRIT. 38.4 % (36.0-48.0); HEMOGLOBIN. 12.9 g/dL (12.0-16.0); LYMPHOCYTES % 7.4 % (20.0-50.0); MEAN CORPUSCULAR HEMOGLOBIN 30.2 pg (28.0-32.0); MEAN CORPUSCULAR VOLUME 90.2 fL (81.0-99.0); MEAN PLATELET VOLUME 7.4 fl (7.4-10.4); MONOCYTES % 12.4 % (2.0-8.0); NEUTROPHILS % 80.1 % (40.0-76.0); PLATELET 323 x1000/uL (130-400); RED BLOOD CELL COUNT 4.26 mill/uL (4.2-5.4)
[2022-05-28] MEDS: BLOOD SUGAR DIAGNOSTIC STRIP TEST SCH ×4 (06:21→23:42)
[2022-05-28 06:31] LABS: CHLORIDE 103 mEq/L (98-107)
[2022-05-28] MEDS: INSULIN LISPRO 100 UNITS/ML SUBCUT SCH ×4 (06:40→23:42)
[2022-05-28] MEDS: METHYLPREDNISOLONE SOD SUCC 125 MG/2 ML VIAL IV SCH (09:50)
[2022-05-28] MEDS: ASPIRIN 81MG TABLET PO SCH (09:51)
[2022-05-28] MEDS: ENOXAPARIN 30MG/0.3ML SYR SUBCUT SCH ×2 (09:51→23:28)
[2022-05-28] MEDS: PANTOPRAZOLE SODIUM 40 MG/VIAL IV SCH (09:51)
[2022-05-28] MEDS: GABAPENTIN 300MG CAPSULE PO SCH (09:53)
[2022-05-28] MEDS: TIMOLOL MALEATE 0.5% OPHTH DROPS 5ML EACHEYE SCH (09:53)
[2022-05-28] MEDS: DICLOFENAC SODIUM 1% GEL 50GM TOP SCH ×3 (09:54→17:00)
[2022-05-28] MEDS ORDERED: POTASSIUM PHOS,M-BASIC-D-BASIC 30 MMOL in SODIUM CHLORIDE 0.9% 500 ML IV NR (10:00)
[2022-05-28 10:48] LABS: BG BASE EXCESS 5.1 mmol/L (-2.0-2.0); BG CARBOXYHEMOGLOBIN 0.8 % (0.5-1.5); BG DEOXYHEMOGLOBIN 0.8 % (0.0-5.0); BG FRACTION INSPIRED OXYGEN 32; BG HCO3 ACT 30.6 mmol/L (22.0-26.0); BG METHEMOGLOBIN 0.2 % (0.0-1.5); BG OXYGEN SATURATION 99.2 % (92.0-98.5); BG OXYHEMOGLOBIN 98.2 % (94.0-97.0); BG PCO2 48.8 mmHg (35.0-45.0); BG PH 7.415 (7.350-7.450); BG SAMPLE SITE LEFT RADIAL; BG TOTAL HEMOGLOBIN 13.1 g/dL (12.0-18.0); BG VENT MODE NASAL CANNULA
[2022-05-28] MEDS: CEFEPIME 1,000 MG in DEXTROSE 5% WATER 50 ML IV SCH ×2 (12:20→23:46)
[2022-05-28] MEDS: LATANOPROST 0.005% OPHTH DROPS 2.5ML EACHEYE SCH (17:00)
[2022-05-28] MEDS: METHYLPREDNISOLONE SOD SUCC 40 MG/ML VIAL IV SCH (23:28)
[2022-05-28] MEDS: METOPROLOL TARTRATE 25MG TABLET PO SCH (23:29)
[2022-05-29] VITALS (9 sets, daily range): BP systolic 111–154; BP diastolic 53–81
[2022-05-29] MEDS: DICLOFENAC SODIUM 1% GEL 50GM TOP SCH ×5 (00:45→21:52)
[2022-05-29] MEDS: TIMOLOL MALEATE 0.5% OPHTH DROPS 5ML EACHEYE SCH ×3 (00:45→17:13)
[2022-05-29] MEDS: INSULIN LISPRO 100 UNITS/ML SUBCUT SCH ×4 (06:00→23:38)
[2022-05-29] MEDS: BLOOD SUGAR DIAGNOSTIC STRIP TEST SCH ×4 (06:58→23:38)
[2022-05-29 08:50] LABS: CHLORIDE 105 mEq/L (98-107)
[2022-05-29 08:57] LABS: PHOSPHORUS 2.8 mg/dL (2.5-4.9)
[2022-05-29] MEDS: METHYLPREDNISOLONE SOD SUCC 40 MG/ML VIAL IV SCH (08:59)
[2022-05-29] MEDS ORDERED: FAMOTIDINE 20MG/2ML VIAL IV SCH (09:00)
[2022-05-29] MEDS: METOPROLOL TARTRATE 25MG TABLET PO SCH ×2 (09:00→21:00)
[2022-05-29] MEDS: ASPIRIN 81MG TABLET PO SCH (09:00)
[2022-05-29] MEDS: ENOXAPARIN 30MG/0.3ML SYR SUBCUT SCH ×2 (09:00→21:51)
[2022-05-29] MEDS: GABAPENTIN 300MG CAPSULE PO SCH (09:05)
[2022-05-29] MEDS ORDERED: SODIUM CHLORIDE 0.9% 250 ML IV ONE (13:30)
[2022-05-29] MEDS ORDERED: SODIUM CHLORIDE 0.9% 1,000 ML IV ONE (13:45)
[2022-05-29] MEDS: LATANOPROST 0.005% OPHTH DROPS 2.5ML EACHEYE SCH (17:00)
[2022-05-29] MEDS ORDERED: METHYLPREDNISOLONE SOD SUCC 40 MG/ML VIAL IV SCH (20:00)
[2022-05-29] MEDS: INSULIN GLARGINE 100 UNITS/ML SUBCUT SCH (21:51)
[2022-05-30] VITALS: BP 118/69
[2022-05-30 04:04] VITALS: BP 120/79
[2022-05-30] MEDS: INSULIN LISPRO 100 UNITS/ML SUBCUT SCH ×4 (05:50→23:34)
[2022-05-30] MEDS: BLOOD SUGAR DIAGNOSTIC STRIP TEST SCH ×4 (05:51→23:34)
[2022-05-30 07:26] LABS: CHLORIDE 108 mEq/L (98-107)
[2022-05-30 08:00] VITALS: BP 97/51
[2022-05-30] MEDS ORDERED: PRED10TA23 PO (08:37)
[2022-05-30] MEDS: TIMOLOL MALEATE 0.5% OPHTH DROPS 5ML EACHEYE SCH ×2 (09:12→17:00)
[2022-05-30] MEDS: DICLOFENAC SODIUM 1% GEL 50GM TOP SCH ×4 (09:12→20:32)
[2022-05-30] MEDS: METHYLPREDNISOLONE SOD SUCC 40 MG/ML VIAL IV SCH ×2 (09:12→20:29)
[2022-05-30] MEDS: ASPIRIN 81MG TABLET PO SCH (09:12)
[2022-05-30] MEDS: METOPROLOL TARTRATE 25MG TABLET PO SCH ×2 (09:14→20:32)
[2022-05-30] MEDS: ENOXAPARIN 30MG/0.3ML SYR SUBCUT SCH ×2 (09:15→20:30)
[2022-05-30] MEDS: GABAPENTIN 300MG CAPSULE PO SCH (09:15)
[2022-05-30 12:00] VITALS: BP 124/66
[2022-05-30 16:00] VITALS: BP 114/52
[2022-05-30] MEDS: LATANOPROST 0.005% OPHTH DROPS 2.5ML EACHEYE SCH (17:00)
[2022-05-30] MEDS ORDERED: PRED10TA23 MT (18:45)
[2022-05-30] MEDS ORDERED: P20 MT (18:45)
[2022-05-30 20:00] VITALS: BP 116/60
[2022-05-30] MEDS: INSULIN GLARGINE 100 UNITS/ML SUBCUT SCH (21:07)
[2022-05-31] VITALS: BP 120/65
[2022-05-31 03:41] VITALS: BP 147/72
[2022-05-31] MEDS: INSULIN LISPRO 100 UNITS/ML SUBCUT SCH ×3 (06:00→17:14)
[2022-05-31] MEDS: BLOOD SUGAR DIAGNOSTIC STRIP TEST SCH ×3 (06:02→17:14)
[2022-05-31 08:00] VITALS: BP 137/72
[2022-05-31] MEDS: ASPIRIN 81MG TABLET PO SCH (09:13)
[2022-05-31] MEDS: GABAPENTIN 300MG CAPSULE PO SCH (09:13)
[2022-05-31] MEDS: METOPROLOL TARTRATE 25MG TABLET PO SCH ×2 (09:14→21:12)
[2022-05-31] MEDS: ENOXAPARIN 30MG/0.3ML SYR SUBCUT SCH ×2 (09:14→21:13)
[2022-05-31] MEDS: TIMOLOL MALEATE 0.5% OPHTH DROPS 5ML EACHEYE SCH ×2 (09:15→16:31)
[2022-05-31] MEDS: DICLOFENAC SODIUM 1% GEL 50GM TOP SCH ×3 (09:16→16:31)
[2022-05-31 12:00] VITALS: BP 124/60
[2022-05-31] MEDS: LATANOPROST 0.005% OPHTH DROPS 2.5ML EACHEYE SCH (16:33)
[2022-05-31] MEDS: INSULIN GLARGINE 100 UNITS/ML SUBCUT SCH (21:32)
[2022-06-01] MEDS ORDERED: METHYLPREDNISOLONE SOD SUCC 40 MG/ML VIAL IV SCH (09:00)
== END 2022-05-31 23:10 | DRG 870 ==
LOC: ER 01:17 → MICUSO 01:51 → EDBEDREQTM 01:52 → EDBEDREQ 01:52 → SUPCPDRO 08:26 → EDBEDREQSVC 14:17 → CVICU 05-24 10:56 → 5EST 05-28 13:55
PROVIDERS: ADMIT Internal Medicine; ATTEND Internal Medicine
PROC: 5A0935A Assistance with Respiratory Ventilation, Less than 24 Consecutive Hours, High Flow/Velocity Cannula (ICD-10-PCS; 2022-05-22)
PROC: 5A09457 Assistance with Respiratory Ventilation, 24-96 Consecutive Hours, Continuous Positive Airway Pressure (ICD-10-PCS; 2022-05-22)
PROC: 5A1955Z Respiratory Ventilation, Greater than 96 Consecutive Hours (ICD-10-PCS; principal; 2022-05-23)
PROC: 0BH17EZ Insertion of Endotracheal Airway into Trachea, Via Natural or Artificial Opening (ICD-10-PCS; 2022-05-23)
PROC: 4A10X4Z Monitoring of Central Nervous Electrical Activity, External Approach (ICD-10-PCS; 2022-05-27)
PROC: 02HV33Z Insertion of Infusion Device into Superior Vena Cava, Percutaneous Approach (ICD-10-PCS; 2022-05-29)
PROC: B548ZZA Ultrasonography of Superior Vena Cava, Guidance (ICD-10-PCS; 2022-05-29)
DX: A41.9 Sepsis, unspecified organism (principal); G93.41 Metabolic encephalopathy; L89.223 Pressure ulcer of left hip, stage 3; J96.01 Acute respiratory failure with hypoxia; J96.02 Acute respiratory failure with hypercapnia; I21.4 Non-ST elevation (NSTEMI) myocardial infarction; J18.9 Pneumonia, unspecified organism; R65.21 Severe sepsis with septic shock; E87.1 Hypo-osmolality and hyponatremia; E87.29 Other acidosis; Z68.43 Body mass index [BMI] 50.0-59.9, adult; G82.20 Paraplegia, unspecified; N39.0 Urinary tract infection, site not specified; E78.5 Hyperlipidemia, unspecified; D64.9 Anemia, unspecified; E11.9 Type 2 diabetes mellitus without complications; E87.6 Hypokalemia; F03.A0 Unspecified dementia, mild, without behavioral disturbance, psychotic disturbance, mood disturbance, and anxiety; M16.11 Unilateral primary osteoarthritis, right hip; M48.02 Spinal stenosis, cervical region; M48.07 Spinal stenosis, lumbosacral region; S05.11XA Contusion of eyeball and orbital tissues, right eye, initial encounter; E66.01 Morbid (severe) obesity due to excess calories; E83.39 Other disorders of phosphorus metabolism; E83.42 Hypomagnesemia; B96.20 Unspecified Escherichia coli [E. coli] as the cause of diseases classified elsewhere; G47.30 Sleep apnea, unspecified; Z20.822 Contact with and (suspected) exposure to COVID-19; I11.0 Hypertensive heart disease with heart failure; I50.9 Heart failure, unspecified; G47.33 Obstructive sleep apnea (adult) (pediatric); L89.159 Pressure ulcer of sacral region, unspecified stage; I35.0 Nonrheumatic aortic (valve) stenosis; W18.30XA Fall on same level, unspecified, initial encounter; Y92.009 Unspecified place in unspecified non-institutional (private) residence as the place of occurrence of the external cause
CPT/HCPCS: 31500; 36415; 36573; 36600; 71045; 72131; 72170; 80048; 80053; 80061; 80076; 80202; 80305; 81003; 82040; 82140; 82375; 82550; 82553; 82728; 82805; 82962; 83036; 83540; 83550; 83605; 83735; 83880; 83930; 83935; 84100; 84134; 84145; 84300; 84439; 84443; 84481; 84484; 85025; 85379; 87070; 87186; 87426; 87804; 92610; 93005; 93306; 93970; 94002; 94003; 94640; 94660; 97162; 97166; 99285; A6261; C1725; C9113; C9803; J0456; J0692; J1120; J1650; J1815; J1940; J2060; J2250; J2370; J2543; J2920; J2930; J3010; J3370; J3475; J3480; J3490; J7030; J7040; J7050; J7060; A4315

== ENCOUNTER 2022-06-10 17:02 | Inpatient (IN) | payer MEDICARE, BC ==
[~2022-06-10] VITALS: Ht 157.5 cm; Wt 115.2 kg
[~2022-06-10 17:02] MED LIST: ATROV3; DICL100G31 TP; FLUT16SP15; FURO20TA4 PO; GABA-532 PO; HYDR25TA PO; LATA2.5D14 EACHEYE; LOSA50TA41 PO; METF-416 PO; P20 MT; PRAV80TA19 PO; PRED10TA23 MT; TIMO15DR12 EACHEYE
[2022-06-10 18:00] VITALS: BP 105/59
[2022-06-10 18:44] LABS: BG BASE EXCESS 9.6 mmol/L (-2.0-2.0); BG CARBOXYHEMOGLOBIN 0.3 % (0.5-1.5); BG DEOXYHEMOGLOBIN 1.9 % (0.0-5.0); BG FRACTION INSPIRED OXYGEN 28; BG HCO3 ACT 34.9 mmol/L (22.0-26.0); BG METHEMOGLOBIN 0.1 % (0.0-1.5); BG OXYGEN SATURATION 98.1 % (92.0-98.5); BG OXYHEMOGLOBIN 97.7 % (94.0-97.0); BG PCO2 51.1 mmHg (35.0-45.0); BG PH 7.452 (7.350-7.450); BG SAMPLE SITE LEFT RADIAL; BG TOTAL HEMOGLOBIN 10.2 g/dL (12.0-18.0); BG VENT MODE MASK - BIPAP
[2022-06-10 20:00] VITALS: BP 99/49
[2022-06-10 22:00] VITALS: BP 101/51
[2022-06-10] MEDS ORDERED: DEXTROSE 50% WATER 50ML SYRINGE IV PRN (22:00)
[2022-06-10] MEDS ORDERED: MAGNESIUM/ALUMINUM HYDROXIDE/SIMETHICONE 30ML UDC PO PRN (22:00)
[2022-06-10] MEDS ORDERED: DOCUSATE SODIUM 100MG CAPSULE PO PRN (22:00)
[2022-06-10] MEDS ORDERED: LACTULOSE 20G/30ML UDC PO PRN (22:00)
[2022-06-10] MEDS ORDERED: IPRATROPIUM/ALBUTEROL 0.5-3(2.5)MG/3ML NEB HHN PRN (22:00)
[2022-06-10] MEDS ORDERED: GUAIFENESIN/CODEINE 200-20MG/10ML UDC PO PRN (22:00)
[2022-06-10] MEDS ORDERED: CLONIDINE 0.1MG TABLET PO PRN (22:00)
[2022-06-10] MEDS ORDERED: ALBUTEROL (0.083%) 2.5MG/3ML NEB HHN PRN (22:30)
[2022-06-10] MEDS ORDERED: IPRATROPIUM BROMIDE (0.02%) 0.5MG/2.5ML NEB HHN PRN (22:30)
[2022-06-10] MEDS ORDERED: MENTHOL/LANOLIN/CALAMINE/ZN OX OINT 71GM TOP PRN (22:45)
[2022-06-10 23:26] VITALS: BP 86/42
[2022-06-11] VITALS (9 sets, daily range): BP systolic 87–148; BP diastolic 41–61
[2022-06-11 06:12] LABS: BASOPHILS % 0.4 % (0.0-2.0); EOSINOPHILS % 1.4 % (0.0-5.0); HEMATOCRIT. 28.4 % (36.0-48.0); HEMOGLOBIN. 9.4 g/dL (12.0-16.0); LYMPHOCYTES % 24.1 % (20.0-50.0); MEAN CORPUSCULAR HEMOGLOBIN 30.4 pg (28.0-32.0); MEAN CORPUSCULAR VOLUME 91.3 fL (81.0-99.0); MEAN PLATELET VOLUME 8.4 fl (7.4-10.4); NEUTROPHILS % 64.1 % (40.0-76.0); PLATELET 165 x1000/uL (130-400); RED BLOOD CELL COUNT 3.11 mill/uL (4.2-5.4); RED CELL DISTRIBUTION WIDTH 15.5 % (11.6-14.6)
[2022-06-11 06:40] LABS: HEPATITIS B SURFACE ANTIGEN NEGATIVE
[2022-06-11] MEDS: INSULIN LISPRO 100 UNITS/ML SUBCUT SCH ×4 (07:52→22:01)
[2022-06-11] MEDS: BLOOD SUGAR DIAGNOSTIC STRIP TEST SCH ×4 (07:52→21:58)
[2022-06-11 08:05] LABS: CHLORIDE 97 mEq/L (98-107)
[2022-06-11] MEDS: METOPROLOL TARTRATE 25MG TABLET PO SCH ×2 (08:13→21:59)
[2022-06-11] MEDS: ASPIRIN 81MG TABLET PO SCH (08:20)
[2022-06-11] MEDS: ENOXAPARIN 30MG/0.3ML SYR SUBCUT SCH ×2 (08:21→21:58)
[2022-06-11] MEDS: TIMOLOL MALEATE 0.25% OPHTH DROPS 5ML EACHEYE SCH ×2 (08:22→22:00)
[2022-06-11] MEDS: DICLOFENAC SODIUM 1% GEL 50GM TOP SCH ×4 (08:23→21:58)
[2022-06-11] MEDS: METFORMIN HCL 500MG TABLET PO SCH ×2 (08:27→17:30)
[2022-06-11] MEDS: GABAPENTIN 300MG CAPSULE PO SCH (08:28)
[2022-06-11 08:35] LABS: BG BASE EXCESS 10.5 mmol/L (-2.0-2.0); BG CARBOXYHEMOGLOBIN 0.8 % (0.5-1.5); BG DEOXYHEMOGLOBIN 1.6 % (0.0-5.0); BG FRACTION INSPIRED OXYGEN 28; BG METHEMOGLOBIN 0.2 % (0.0-1.5); BG OXYGEN SATURATION 98.4 % (92.0-98.5); BG OXYHEMOGLOBIN 97.4 % (94.0-97.0); BG PCO2 53.6 mmHg (35.0-45.0); BG PH 7.445 (7.350-7.450); BG PO2 121.6 mmHg (75.0-100.0); BG SAMPLE SITE LEFT RADIAL; BG TOTAL HEMOGLOBIN 10.2 g/dL (12.0-18.0); BG VENT MODE MASK - BIPAP
[2022-06-11] MEDS ORDERED: MAGNESIUM OXIDE 400MG TABLET PO SCH (09:00)
[2022-06-11] MEDS: LATANOPROST 0.005% OPHTH DROPS 2.5ML EACHEYE SCH (17:30)
[2022-06-12] VITALS: BP 119/62
[2022-06-12] MEDS: ACETAMINOPHEN 325MG TABLET PO PRN ×2 (03:04→22:16)
[2022-06-12 04:00] VITALS: BP 103/66
[2022-06-12 06:18] LABS: BASOPHILS % 0.3 % (0.0-2.0); EOSINOPHILS % 2.2 % (0.0-5.0); HEMATOCRIT. 29.9 % (36.0-48.0); HEMOGLOBIN. 9.8 g/dL (12.0-16.0); LYMPHOCYTES % 24.3 % (20.0-50.0); MEAN CORPUSCULAR HEMOGLOBIN 30.5 pg (28.0-32.0); MEAN CORPUSCULAR VOLUME 92.6 fL (81.0-99.0); MONOCYTES % 10.1 % (2.0-8.0); NEUTROPHILS % 63.1 % (40.0-76.0); PLATELET 171 x1000/uL (130-400); RED BLOOD CELL COUNT 3.23 mill/uL (4.2-5.4); RED CELL DISTRIBUTION WIDTH 15.1 % (11.6-14.6)
[2022-06-12 07:32] LABS: CHLORIDE 97 mEq/L (98-107)
[2022-06-12 07:48] LABS: PHOSPHORUS 3.1 mg/dL (2.5-4.9)
[2022-06-12 08:00] VITALS: BP 101/51
[2022-06-12] MEDS: INSULIN LISPRO 100 UNITS/ML SUBCUT SCH ×4 (08:00→21:00)
[2022-06-12] MEDS: BLOOD SUGAR DIAGNOSTIC STRIP TEST SCH ×4 (08:19→21:52)
[2022-06-12] MEDS: ENOXAPARIN 30MG/0.3ML SYR SUBCUT SCH ×2 (08:21→21:46)
[2022-06-12] MEDS: TIMOLOL MALEATE 0.25% OPHTH DROPS 5ML EACHEYE SCH ×2 (08:22→22:15)
[2022-06-12] MEDS: GABAPENTIN 300MG CAPSULE PO SCH (08:22)
[2022-06-12] MEDS: ASPIRIN 81MG TABLET PO SCH (08:22)
[2022-06-12] MEDS: DICLOFENAC SODIUM 1% GEL 50GM TOP SCH ×4 (08:22→21:52)
[2022-06-12] MEDS: METFORMIN HCL 500MG TABLET PO SCH ×2 (08:22→17:49)
[2022-06-12] MEDS: METOPROLOL TARTRATE 25MG TABLET PO SCH (08:23)
[2022-06-12 08:31] LABS: BG BASE EXCESS 9.3 mmol/L (-2.0-2.0); BG CARBOXYHEMOGLOBIN 0.3 % (0.5-1.5); BG DEOXYHEMOGLOBIN 1.9 % (0.0-5.0); BG FRACTION INSPIRED OXYGEN 28; BG HCO3 ACT 34.6 mmol/L (22.0-26.0); BG METHEMOGLOBIN 0.1 % (0.0-1.5); BG OXYGEN SATURATION 98.1 % (92.0-98.5); BG OXYHEMOGLOBIN 97.7 % (94.0-97.0); BG PCO2 51.4 mmHg (35.0-45.0); BG PH 7.446 (7.350-7.450); BG PO2 134.5 mmHg (75.0-100.0); BG SAMPLE SITE LEFT RADIAL; BG TOTAL HEMOGLOBIN 9.8 g/dL (12.0-18.0); BG VENT MODE MASK - BIPAP
[2022-06-12] MEDS ORDERED: MAGNESIUM OXIDE 400MG TABLET PO SCH (09:00)
[2022-06-12 12:00] VITALS: BP 114/55
[2022-06-12] MEDS ORDERED: METF-414 PO (13:39)
[2022-06-12] MEDS ORDERED: LACT10SO7 PO (13:39)
[2022-06-12] MEDS ORDERED: GABA-532 PO (13:39)
[2022-06-12] MEDS ORDERED: MENT71OI TOP (13:39)
[2022-06-12] MEDS ORDERED: METO25TA6 PO (13:39)
[2022-06-12] MEDS ORDERED: ASPI-1160 PO (13:39)
[2022-06-12] MEDS ORDERED: MAGN400C PO (13:40)
[2022-06-12 16:00] VITALS: BP 123/58
[2022-06-12] MEDS ORDERED: APIX5TAB PO (17:36)
[2022-06-12] MEDS: LATANOPROST 0.005% OPHTH DROPS 2.5ML EACHEYE SCH (17:49)
[2022-06-12] MEDS ORDERED: METOPROLOL TARTRATE 25MG TABLET PO SCH (21:00)
[2022-06-12 22:25] VITALS: BP 116/49
== END 2022-06-12 23:59 | DRG 853 ==
LOC: 5EST 17:02
PROVIDERS: ADMIT Internal Medicine; ATTEND Internal Medicine
PROC: 5A09357 Assistance with Respiratory Ventilation, Less than 24 Consecutive Hours, Continuous Positive Airway Pressure (ICD-10-PCS; principal; 2022-06-10)
PROC: 0JB70ZZ Excision of Back Subcutaneous Tissue and Fascia, Open Approach (ICD-10-PCS; 2022-06-12)
PROC: 0JB90ZZ Excision of Buttock Subcutaneous Tissue and Fascia, Open Approach (ICD-10-PCS; 2022-06-12)
PROC: 0JB90ZZ Excision of Buttock Subcutaneous Tissue and Fascia, Open Approach (ICD-10-PCS; 2022-06-12)
DX: A41.9 Sepsis, unspecified organism (principal); G93.41 Metabolic encephalopathy; J96.02 Acute respiratory failure with hypercapnia; J96.01 Acute respiratory failure with hypoxia; L89.153 Pressure ulcer of sacral region, stage 3; L89.323 Pressure ulcer of left buttock, stage 3; L89.313 Pressure ulcer of right buttock, stage 3; J18.9 Pneumonia, unspecified organism; E87.1 Hypo-osmolality and hyponatremia; N39.0 Urinary tract infection, site not specified; E66.2 Morbid (severe) obesity with alveolar hypoventilation; E46 Unspecified protein-calorie malnutrition; Z68.42 Body mass index [BMI] 45.0-49.9, adult; I11.0 Hypertensive heart disease with heart failure; E11.9 Type 2 diabetes mellitus without complications; E78.5 Hyperlipidemia, unspecified; E83.39 Other disorders of phosphorus metabolism; E83.42 Hypomagnesemia; E87.6 Hypokalemia; F03.A0 Unspecified dementia, mild, without behavioral disturbance, psychotic disturbance, mood disturbance, and anxiety; I48.0 Paroxysmal atrial fibrillation; I50.9 Heart failure, unspecified; M16.11 Unilateral primary osteoarthritis, right hip; Z90.11 Acquired absence of right breast and nipple; Z87.442 Personal history of urinary calculi; Z85.3 Personal history of malignant neoplasm of breast
CPT/HCPCS: 36415; 36600; 71045; 80048; 80053; 82040; 82375; 82805; 82962; 83036; 83735; 84100; 84134; 85025; 86803; 87340; 92610; 93005; 94660; 97110; 97162; 97166; 97530; A6261; J1650; J1815